=== PATIENT | male | born 1945 | race Native Hawaiian/Other Pacific Islander ===

== ENCOUNTER 2017-08-04 02:41 | Emergency (ER) | payer OTHER ==
[~2017-08-04] VITALS: Ht 167.6 cm; Wt 79.4 kg
[~2017-08-04 02:41] MED LIST: ASA LO-DOSE81 MG PO; FOSI20TA2 PO; GLIP10TA55 PO; HYDR25TA60 PO; LEVITRA20 MG PO; METF500T PO; SIMV40TA57 PO; SLO-NIACIN500 MG PO; ZANTAC 75 PO
[2017-08-04 03:53] LABS: PLATELET COUNT 210 K/uL (142-355)
[2017-08-04 04:04] LABS: POTASSIUM 4.1 mmol/L (3.6-5.2); SODIUM 130 mmol/L (136-145)
[2017-08-04 05:21] VITALS: BP 150/74; TEMP 98
== END 2017-08-04 05:24 | disposition home or self-care (01) ==
LOC: ED 02:41
DX: R10.84 Generalized abdominal pain (principal); E11.65 Type 2 diabetes mellitus with hyperglycemia
CPT/HCPCS: 36415; 74022; 80053; 81000; 85027; 96372; 99283; J1815

== ENCOUNTER 2017-08-30 09:11 | Observation (INO) | payer OTHER ==
[~2017-08-30] VITALS: Ht 170.2 cm; Wt 74.2 kg
[2017-08-30 09:25] VITALS: BP 182/48; TEMP 98.5
[2017-08-30 11:45] LABS: PLATELET COUNT 278 K/uL (142-355)
[2017-08-30 11:49] LABS: POTASSIUM 4.4 mmol/L (3.6-5.2)
[2017-08-31 02:35] VITALS: BP 167/62; TEMP 98.2; Ht 170.2 cm; Wt 74.2 kg
[2017-08-31 04:00] VITALS: BP 144/63; TEMP 98.2
[2017-08-31 05:51] LABS: POTASSIUM 3.4 mmol/L (3.6-5.2); SODIUM 137 mmol/L (136-145)
[2017-08-31 08:00] VITALS: BP 152/79; TEMP 98
[2017-08-31 12:00] VITALS: BP 158/71; TEMP 98.4
[2017-08-31 16:00] VITALS: BP 127/73; TEMP 98
[2017-08-31 20:00] VITALS: BP 170/61; TEMP 99.6
[2017-09-01] VITALS: BP 160/61; TEMP 98.2
[2017-09-01 04:00] VITALS: BP 155/65; TEMP 98.3
== END 2017-09-01 07:15 | disposition home or self-care (01) ==
LOC: ED 09:11 → MED/SURG 19:03
DX: N13.30 Unspecified hydronephrosis (principal); I10 Essential (primary) hypertension; E03.8 Other specified hypothyroidism; E11.9 Type 2 diabetes mellitus without complications; N40.0 Benign prostatic hyperplasia without lower urinary tract symptoms
CPT/HCPCS: 36415; 51702; 74022; 80048; 80053; 81000; 82150; 82948; 83690; 84153; 85014; 85018; 85027; 96365; 96366; 96372; 96374; 96375; 99220; 99284; G0378; J1885; J3490; S0028

== ENCOUNTER 2017-10-17 21:20 | Emergency (ER) | payer OTHER ==
[~2017-10-17] VITALS: Ht 170.2 cm; Wt 72.1 kg
[2017-10-17 22:51] LABS: PLATELET COUNT 292 K/uL (142-355)
[2017-10-17 22:56] LABS: POTASSIUM 4.6 mmol/L (3.6-5.2)
[2017-10-18 01:36] VITALS: BP 165/82; TEMP 98.8
== END 2017-10-18 01:37 | disposition home or self-care (01) ==
LOC: ED 21:20
DX: R19.7 Diarrhea, unspecified (principal); K52.89 Other specified noninfective gastroenteritis and colitis; R10.84 Generalized abdominal pain
CPT/HCPCS: 36415; 80053; 81000; 82150; 83690; 85027; 96361; 96374; 99284; J2405

== ENCOUNTER 2019-11-19 10:22 | Emergency (ER) | payer OTHER ==
[~2019-11-19] VITALS: Ht 170.2 cm; Wt 79.4 kg
[2019-11-19 11:20] VITALS: BP 160/82; TEMP 97.7
== END 2019-11-19 11:25 | disposition home or self-care (01) ==
LOC: ED 10:22
DX: Z76.0 Encounter for issue of repeat prescription (principal)
CPT/HCPCS: 99281

== ENCOUNTER 2020-04-10 08:21 | Outpatient (CLI) | payer OTHER ==
[2020-04-10 09:01] LABS: POTASSIUM 4.8 mmol/L (3.6-5.2); SODIUM 139 mmol/L (136-145)
[2020-04-10 09:49] LABS: PLATELET COUNT 249 K/uL (142-355)
== END 2020-04-10 18:55 | disposition home or self-care (01) ==
LOC: LABW 08:21
PROVIDERS: Nurse Practitioner
DX: N18.4 Chronic kidney disease, stage 4 (severe) (principal); D64.9 Anemia, unspecified; E53.8 Deficiency of other specified B group vitamins; R31.0 Gross hematuria
CPT/HCPCS: 36415; 80053; 80061; 81000; 82306; 82330; 82570; 82607; 82746; 83540; 83550; 83735; 83970; 84100; 84155; 85027; 87086; 87088

== ENCOUNTER 2020-04-23 07:29 | Outpatient (CLI) | payer OTHER ==
[2020-04-23 08:48] LABS: POTASSIUM 5.7 mmol/L (3.6-5.2); SODIUM 137 mmol/L (136-145)
[2020-04-23 09:53] LABS: PLATELET COUNT 229 K/uL (142-355)
== END 2020-04-23 19:14 | disposition home or self-care (01) ==
LOC: LABW 07:29
PROVIDERS: Internal Medicine
DX: N18.4 Chronic kidney disease, stage 4 (severe) (principal); E78.2 Mixed hyperlipidemia; R31.0 Gross hematuria
CPT/HCPCS: 36415; 80053; 80061; 81000; 82306; 82330; 82570; 82607; 82728; 82746; 83540; 83550; 83735; 83970; 84100; 84155; 85027; 87086; 87088

== ENCOUNTER 2020-05-23 10:41 | Outpatient (CLI) | payer OTHER | END 2020-05-23 19:00 | disposition home or self-care (01) | LOC: RAD 10:41 | DX: M54.42 Lumbago with sciatica, left side (principal); M54.41 Lumbago with sciatica, right side ==

== ENCOUNTER 2020-05-29 07:17 | Outpatient (CLI) | payer OTHER ==
[2020-05-29 07:51] LABS: PLATELET COUNT 216 K/uL (142-355)
[2020-05-29 08:27] LABS: POTASSIUM 4.9 mmol/L (3.6-5.2)
== END 2020-05-29 22:50 | disposition home or self-care (01) ==
LOC: LABW 07:17
PROVIDERS: Internal Medicine
DX: N18.4 Chronic kidney disease, stage 4 (severe) (principal); R82.998 Other abnormal findings in urine
CPT/HCPCS: 36415; 80053; 81000; 82306; 82330; 82570; 82607; 82728; 82746; 83540; 83550; 83735; 83970; 84100; 84155; 85027; 87088

== ENCOUNTER 2020-07-12 12:18 | Emergency (ER) | payer OTHER ==
[~2020-07-12] VITALS: Ht 170.2 cm; Wt 74.8 kg
[2020-07-12 13:44] LABS: PLATELET COUNT 206 K/uL (142-355)
[2020-07-12 13:53] LABS: POTASSIUM 4.8 mmol/L (3.6-5.2); SODIUM 141 mmol/L (136-145)
[2020-07-12 16:00] VITALS: BP 166/65; TEMP 98.9
== END 2020-07-12 16:00 | disposition home or self-care (01) ==
LOC: ED 12:18
PROVIDERS: Emergency Medicine Emergency Medical Services
DX: L03.116 Cellulitis of left lower limb (principal)
CPT/HCPCS: 36415; 80053; 83605; 85027; 96365; 99284; J3490

== ENCOUNTER 2020-07-26 12:16 | Emergency (ER) | payer OTHER ==
[~2020-07-26] VITALS: Ht 170.2 cm; Wt 74.8 kg
[2020-07-26 13:00] VITALS: TEMP 98.7
[2020-07-26 13:50] LABS: PLATELET COUNT 223 K/uL (142-355)
[2020-07-26 14:00] LABS: POTASSIUM 4.9 mmol/L (3.6-5.2); SODIUM 140 mmol/L (136-145)
[2020-07-26 14:15] LABS: PARTIAL THROMBOPLASTIN TIME 24.5 SECONDS (24.5-33.6)
[2020-07-26 15:23] VITALS: BP 156/82
== END 2020-07-26 15:50 | disposition home or self-care (01) ==
LOC: ED 12:16
PROVIDERS: Hospitalist
DX: I50.9 Heart failure, unspecified (principal); N18.9 Chronic kidney disease, unspecified; L03.116 Cellulitis of left lower limb; L03.115 Cellulitis of right lower limb
CPT/HCPCS: 36415; 80053; 82550; 83605; 83880; 84484; 85027; 85610; 85730; 87040; 93005; 96365; 96375; 99284; J1885; J1940; J3370

== ENCOUNTER 2020-11-04 09:46 | Outpatient (CLI) | payer OTHER ==
[2020-11-04 10:39] LABS: PLATELET COUNT 209 K/uL (142-355)
[2020-11-04 10:59] LABS: POTASSIUM 5.2 mmol/L (3.6-5.2); SODIUM 142 mmol/L (136-145)
== END 2020-11-04 19:10 | disposition home or self-care (01) ==
LOC: LABW 09:46
PROVIDERS: ATTEND Internal Medicine
DX: N18.4 Chronic kidney disease, stage 4 (severe) (principal); D64.89 Other specified anemias; E53.8 Deficiency of other specified B group vitamins
CPT/HCPCS: 36415; 80053; 81000; 82306; 82330; 82570; 82607; 82728; 82746; 83540; 83550; 83735; 83970; 84100; 84155; 85027

== ENCOUNTER 2020-12-05 13:28 | Outpatient (CLI) | payer OTHER | END 2020-12-05 19:59 | disposition home or self-care (01) | LOC: RAD 13:28 | PROVIDERS: ATTEND Nurse Practitioner Family | DX: M54.5 Low back pain (principal) ==

== ENCOUNTER 2021-01-21 14:37 | Outpatient (CLI) | payer OTHER | END 2021-01-21 19:59 | disposition home or self-care (01) | LOC: RAD 14:37 | PROVIDERS: ATTEND Nurse Practitioner Family | DX: M25.511 Pain in right shoulder (principal) ==

== ENCOUNTER 2021-02-26 12:44 | Outpatient (CLI) | payer OTHER | END 2021-02-26 21:21 | disposition home or self-care (01) | LOC: MRI 12:44 | PROVIDERS: ATTEND Nurse Practitioner Family | DX: M19.011 Primary osteoarthritis, right shoulder (principal) ==

== ENCOUNTER 2021-04-27 14:54 | Outpatient (CLI) | payer OTHER | END 2021-04-27 20:05 | disposition home or self-care (01) | LOC: US 14:54 | PROVIDERS: ATTEND Nurse Practitioner Family | DX: N50.812 Left testicular pain (principal) ==

== ENCOUNTER 2021-05-07 10:53 | Emergency (ER) | payer OTHER | END 2021-05-07 11:57 | disposition home or self-care (01) | LOC: ED 10:53 | DX: L23.7 Allergic contact dermatitis due to plants, except food (principal) | CPT/HCPCS: 96372; 99283; J1100 ==

== ENCOUNTER 2021-05-21 14:47 | Emergency (ER) | payer OTHER ==
[~2021-05-21] VITALS: Ht 170.2 cm; Wt 70.3 kg
[2021-05-21 17:00] LABS: PLATELET COUNT 203 K/uL (142-355)
[2021-05-21 17:13] LABS: SODIUM 141 mmol/L (136-145)
[2021-05-21 17:15] LABS: POTASSIUM 6.3 mmol/L (3.6-5.2)
[2021-05-21 18:10] VITALS: BP 181/89; TEMP 99
== END 2021-05-21 18:30 | disposition home or self-care (01) ==
LOC: ED 14:47
PROVIDERS: Family Medicine
DX: N28.9 Disorder of kidney and ureter, unspecified (principal); N39.0 Urinary tract infection, site not specified; F17.290 Nicotine dependence, other tobacco product, uncomplicated
CPT/HCPCS: 80053; 85027; 96360; 96365; 96366; 99284; J1956

== ENCOUNTER 2021-06-16 12:20 | Outpatient (CLI) | payer OTHER ==
[2021-06-16 12:42] LABS: PLATELET COUNT 130 K/uL (142-355)
[2021-06-16 12:46] LABS: POTASSIUM 4.6 mmol/L (3.6-5.2); SODIUM 145 mmol/L (136-145)
== END 2021-06-16 19:22 | disposition home or self-care (01) ==
LOC: LAB 12:20
PROVIDERS: ATTEND Nurse Practitioner Family
DX: R42 Dizziness and giddiness (principal); R94.31 Abnormal electrocardiogram [ECG] [EKG]
CPT/HCPCS: 80053; 82550; 82553; 84484; 85027

== ENCOUNTER 2021-07-17 10:03 | Outpatient (CLI) | payer OTHER | END 2021-07-17 19:30 | disposition home or self-care (01) | LOC: CT 10:03 | PROVIDERS: ATTEND Specialist | DX: R31.0 Gross hematuria (principal) ==

== ENCOUNTER 2021-08-15 10:58 | Emergency (ER) | payer OTHER ==
[~2021-08-15] VITALS: Ht 170.2 cm; Wt 70.3 kg
[2021-08-15 11:04] VITALS: TEMP 98.5
[2021-08-15 11:35] LABS: PLATELET COUNT 161 K/uL (142-355)
[2021-08-15 11:47] LABS: POTASSIUM 4.6 mmol/L (3.6-5.2); SODIUM 136 mmol/L (136-145)
[2021-08-15 11:57] LABS: PARTIAL THROMBOPLASTIN TIME 24.8 SECONDS (24.5-33.6)
[2021-08-15 12:42] VITALS: BP 159/64
== END 2021-08-15 12:45 | disposition home or self-care (01) ==
LOC: ED 10:58
PROVIDERS: Emergency Medicine
DX: M77.12 Lateral epicondylitis, left elbow (principal); N18.9 Chronic kidney disease, unspecified; R06.02 Shortness of breath
CPT/HCPCS: 36415; 80053; 82550; 83880; 84484; 85027; 85379; 85610; 85730; 99284

== ENCOUNTER 2021-11-17 09:25 | Outpatient (CLI) | payer OTHER | END 2021-11-17 19:09 | disposition home or self-care (01) | LOC: CT 09:25 | PROVIDERS: ATTEND Nurse Practitioner Family | DX: R10.30 Lower abdominal pain, unspecified (principal) ==

== ENCOUNTER 2021-12-03 12:21 | Emergency (ER) | payer OTHER ==
[~2021-12-03] VITALS: Ht 170.2 cm; Wt 77.6 kg
[2021-12-03 13:58] LABS: PLATELET COUNT 188 K/uL (142-355)
[2021-12-03 14:06] LABS: POTASSIUM 5.1 mmol/L (3.6-5.2)
[2021-12-03 14:07] LABS: PARTIAL THROMBOPLASTIN TIME 20.1 SECONDS (24.5-33.6)
[2021-12-04 03:44] LABS: PLATELET COUNT 172 K/uL (142-355)
[2021-12-04 04:01] LABS: POTASSIUM 4.8 mmol/L (3.6-5.2)
[2021-12-04 22:45] VITALS: BP 130/53; TEMP 98
== END 2021-12-04 22:45 | disposition short-term general hospital (02) ==
LOC: ED 12:21
PROVIDERS: Emergency Medicine
DX: I21.4 Non-ST elevation (NSTEMI) myocardial infarction (principal); I48.20 Chronic atrial fibrillation, unspecified; N39.0 Urinary tract infection, site not specified; R42 Dizziness and giddiness; Z11.52 Encounter for screening for COVID-19; F17.210 Nicotine dependence, cigarettes, uncomplicated
CPT/HCPCS: 36415; 80053; 81000; 82550; 83880; 84484; 85027; 85610; 85730; 87086; 87088; 87635; 93005; 96365; 96366; 96372; 96375; 99284; J0744; J1644; J1650; J2270; J2405; J3490; U0003

== ENCOUNTER 2022-08-28 09:47 | Emergency (ER) | payer OTHER ==
[~2022-08-28] VITALS: Ht 170.2 cm; Wt 74.8 kg
[2022-08-28 11:13] LABS: PLATELET COUNT 175 K/uL (142-355)
[2022-08-28 11:16] LABS: POTASSIUM 4.7 mmol/L (3.6-5.2)
[2022-08-28 12:50] VITALS: BP 129/89; TEMP 97.1
== END 2022-08-28 12:50 | disposition home or self-care (01) ==
LOC: ED 09:47
PROVIDERS: Family Medicine
DX: E11.40 Type 2 diabetes mellitus with diabetic neuropathy, unspecified (principal); Z79.84 Long term (current) use of oral hypoglycemic drugs; M10.9 Gout, unspecified; M79.672 Pain in left foot; M79.671 Pain in right foot
CPT/HCPCS: 36415; 80053; 84550; 85027; 99283

== ENCOUNTER 2023-03-15 11:09 | Outpatient (CLI) | payer OTHER ==
[2023-03-15 11:58] LABS: PLATELET COUNT 197 K/uL (142-355)
[2023-03-15 12:00] LABS: POTASSIUM 5.1 mmol/L (3.6-5.2); SODIUM 139 mmol/L (136-145)
== END 2023-03-15 19:24 | disposition home or self-care (01) ==
LOC: LAB 11:09
PROVIDERS: ATTEND Nurse Practitioner Family
DX: E87.5 Hyperkalemia (principal); D72.828 Other elevated white blood cell count
CPT/HCPCS: 80053; 85027